=== PATIENT | female | born 1950 | race Caucasian/White ===

== ENCOUNTER 2018-10-10 15:19 | Inpatient (IN) ==
[2018-10-10] MEDS ORDERED: TYLENOL PO PRN (15:52)
[2018-10-10] MEDS ORDERED: XANAX PO PRN (15:52)
[2018-10-10] MEDS: DUONEB (A & A) INH SCH ×3 (16:08→23:54)
--- NOTE | 2018-10-10 17:25 | Diag Imaging Result Doc PS360 ---
EXAM: CHEST-2 VIEWS 10/10/2018 HISTORY: pneumonia TECHNIQUE: PA and lateral chest COMMENT: There are coarse opacities throughout both lungs. This is worsened in the right base since 09/25/2018. IMPRESSION: Worsening pneumonitis bilaterally. Electronically signed by Dale Torres 10/10/2018 5:22 PM
[2018-10-10] MEDS: SOLU-MEDROL IV SCH ×2 (18:03→23:45)
[2018-10-10] MEDS: LEVAQUIN 750 MG/D5W 750 MG/150 ML IVPB IV SCH (18:04)
[2018-10-10 19:50] LABS: BASO# 0.05 X1000 (0.0-0.2); BASO% 0.4 % (0.0-0.8); EOS# 0.68 X1000 (0.0-0.7); HEMATOCRIT 33.9 % (37.0-47.0); HEMOGLOBIN 10.8 g/dL (12.0-16.0); IMM GRAN# 0.07 X1000 (0.0-0.04); IMM GRAN% 0.5 % (0.0-0.5); LYMPH# 1.23 X1000 (1.2-3.4); MCH 26.5 PG (27-31); MCHC 31.9 g/dL (33-37); MCV 83.3 FL (81-99); MONO# 0.97 X1000 (0.11-0.59); MONO% 7.1 % (1.7-9.3); NEUT# 10.64 X1000 (1.4-6.5); PLT 441 X1000 (130-400); RBC 4.07 XMIL (4.2-5.4); RDW 14.8 % (11.5-14.5); WBC 13.64 X1000 (4.8-10.8)
[2018-10-10] MEDS: COLACE PO SCH (20:09)
[2018-10-10] MEDS: ANTIVERT PO SCH (20:10)
[2018-10-10] MEDS: TUSSIONEX LIQUID PO SCH (20:10)
[2018-10-10] MEDS: PRINIVIL PO SCH (20:10)
[2018-10-10] MEDS: FISH OIL CONCENTRATE PO SCH (20:10)
[2018-10-10] MEDS: REGLAN PO SCH (20:10)
[2018-10-10] MEDS: MUCINEX PO SCH (20:10)
[2018-10-10 20:17] LABS: ESTIMATED GFR > 60
[2018-10-10 20:20] LABS: AGAP 10; CHLORIDE 88 mmol/L (98-107); GLUCOSE 194 mg/dL (70-104); POTASSIUM 3.7 mmol/L (3.5-5.1); SODIUM 130 mmol/L (136-145); TCO2 32 mmol/L (25-35)
[2018-10-10 20:21] LABS: ALB/GLOB RATIO 1.6; ALBUMIN 3.6 g/dL (3.5-5.0); ALKALINE PHOSPHATASE 76 U/L (32-104); BUN 11 mg/dL (8-22); CALCIUM 8.7 mg/dL (8.8-10.2); COSMO 266; CREATININE 0.6 mg/dL (0.5-0.9); GOT 24 U/L (10-30); GPT 18 U/L (10-36); TOTAL BILIRUBIN 0.16 mg/dL (0.20-1.00); TOTAL PROTEIN 5.8 g/dL (6.3-8.3)
[2018-10-10] MEDS: ASMANEX 220 MICROGM INHALER INH SCH (20:46)
[2018-10-10] MEDS: METROGEL 1% TOP SCH (21:30)
[2018-10-10] MEDS: GLUCOSAMINE 500 MG/CHONDROITIN 400 MG PO SCH (21:36)
--- NOTE | 2018-10-10 23:48 | HISTORY AND PHYSICAL ---
PRIMARY CARE PHYSICIAN: Dr. Salvador Wells. CHIEF COMPLAINT: Cough, congestion, wheezing. HISTORY OF PRESENT ILLNESS: A 67-year-old white female with a very complicated past medical history presents for evaluation of above-mentioned symptoms. Current history of present illness began approximately 2 weeks ago. At that time, patient states she developed cough, congestion, and wheezing. This was above her baseline pulmonary fibrosis. The patient states over the course of the last 2 weeks, her condition has rapidly progressed. The patient currently complains of a nonproductive cough, congestion, increasing shortness of breath and intermittent wheezing. Because of her progressive symptoms, she presented to my office today. Upon arrival, patient's oxygen saturation was in the 80s with 2 L of oxygen. Because of her progressive symptoms, patient will be admitted to the hospital for full evaluation and management. Of note, patient denies fevers, chills, nausea, vomiting, chest discomfort, palpitations, dysuria, hematuria, pyuria, or change in bowel movements. She denies significant sick contacts to her knowledge. PAST MEDICAL HISTORY: 1. Allergic rhinitis. 2. Asthma. 3. History of vertigo. 4. Multiple nevi and a family history of melanoma. 5. History of left invasive mammary carcinoma of the breast diagnosed in July 2014. She is status post lumpectomy and XRT. 6. History of laparoscopic cholecystectomy in 1990. 7. Depression. 8. Metabolic syndrome. 9. Reflux disease. 10. Hypertension. 11. Hypertriglyceridemia. 12. Hyperlipidemia. 13. Impaired fasting glucose. 14. History of an intracolonic lipoma. 15. Obstructive sleep apnea. 16. Obesity. 17. Osteoarthritis. 18. Osteopenia. 19. History of GILDA/BSO. 20. Palpitations. 21. Postmenopausal state. 22. Pulmonary fibrosis. CURRENT MEDICATIONS: 1. Aloe vera 25 mg 2 tablets twice daily. 2. Asmanex 220 mcg 1 puff twice daily. 3. B-complex vitamin daily. 4. Celebrex 200 mg daily. 5. Coenzyme Q10 100 mg daily. 6. Duloxetine 60 mg daily. 7. Fish oil 1000 mg twice daily. 8. Fluticasone nasal spray 2 sprays each nostril daily as needed. 9. Hydrochlorothiazide 12.5 mg daily. 10. Letrozole 2.5 mg daily. 11. Lisinopril 5 mg at bedtime. 12. Magnesium 200 mg daily as needed. 13. Meclizine 25 mg twice daily as needed. 14. Reglan 10 mg twice daily. 15. Metrogel at bedtime. 16. Mucinex DM twice daily. 17. Nexium 40 mg daily. 18. Osteo Bi-Flex twice daily. 19. Potassium gluconate 550 mg daily. 20. Prednisone 25 mg daily. 21. ProAir HFA 1-2 puffs every 4-6 hours as needed. 22. Prolia every 6 months. 23. Singulair 10 mg daily. 24. Tussionex 5 mL at bedtime. 25. Vitamin D3 1000 units daily. 26. Xanax 0.5 mg 1 tablet at bedtime. 27. Zyrtec 10 mg daily as needed. 28. FiberCon 2 tablets daily. 29. Body/hair/skin/nails vitamin 3 capsules daily. 30. Colace 100 mg 3 tablets at bedtime. ALLERGIES: Patient states she is allergic to Arnuity Ellipta which causes headache and shortness of breath and Wellbutrin which caused headaches. SOCIAL HISTORY: Patient previously smoked 1 pack per day for 18 years. She stopped in 1986. She drinks approximately 1 to 6 alcoholic drinks per week. She denies illicit drug use. She is retired. She enjoys reading, sweepstakes and bird watching. She does not exercise routinely. FAMILY HISTORY: Patient's father passed at age 65 secondary to complications of melanoma. Patient's mother is living at age 91 with a history of hyperlipidemia, pulmonary fibrosis, COPD, pacemaker implantation, and mitral valve prolapse. REVIEW OF SYSTEMS: A 12 point review of systems was performed. Pertinent positives and negatives noted history present illness. PHYSICAL EXAMINATION: VITAL SIGNS: Temperature 98.4 degrees, heart rate 81, respirations 18, blood pressure is 131/65. GENERAL: Chronically ill appearing, no acute distress. HEENT: Normocephalic, atraumatic. Pupils equal, round, reactive to light. Extraocular muscles intact. Sclerae anicteric. [place]row conjunctivae. Oral and nasopharynx clear without exudate. NECK: Supple. No lymphadenopathy. No thyromegaly. No bruits auscultated. CARDIOVASCULAR: Regular rate and rhythm. No significant murmurs, rubs, or gallops. PULMONARY: Crackles at bilateral bases. Decreased breath sounds. ABDOMEN: Soft, nontender, nondistended. Positive bowel sounds. EXTREMITIES: Moves all extremities well. No significant clubbing, cyanosis, 1+ lower extremity edema bilaterally. NEUROLOGIC: Cranial nerves 2-12 grossly intact. Motor and sensory grossly intact. PSYCHOLOGIC: Appropriate. LABORATORY DATA: White blood cell count 13.64, hemoglobin 10.8, hematocrit 33.9, platelet count 441,000. Sodium 130, potassium 3.7, chloride 88, bicarb 32, BUN 11, creatinine 0.6, glucose 194, calcium 8.7, total bilirubin 0.16, total protein 5.8, albumin 3.6, alkaline phosphatase 76, AST 24, ALT 18. Chest x-ray revealed worsening pneumonitis bilaterally. ASSESSMENT AND PLAN: A 67-year-old white female with a complicated past medical history presents with progressive shortness of breath, cough and congestion. Patient does have progressive pulmonary fibrosis. Chest x-ray, however, has shown significant progression since September 25. This would suggest an underlying infectious process. Patient be admitted the hospital for full evaluation and management of presumed pneumonia. 1. Admit to General Medicine. 2. Community acquired pneumonia-we will check blood cultures and sputum cultures. We will place patient empirically on levofloxacin therapy. We will increase steroids as described above and start routine bronchodilators. Will encourage incentive spirometry and aspiration precautions. 3. Pulmonary fibrosis-unfortunately, patient has progressive disease. The patient is being treated with prednisone 25 mg daily. In the setting of progressive illness, we will increase steroids to Solu-Medrol 40 mg q.8 hours. We will treat patient's underlying pneumonia as described above. 4. Hypoxia-patient's oxygen requirements have increased. We will place patient on oxygen per protocol. We will aggressively manage pneumonia as noted. 5. Vertigo-we will continue patient on meclizine therapy. 6. Depression-we will continue patient on Cymbalta therapy. 7. Reflux disease-we will place patient on aspiration precautions. We will continue Reglan and Nexium therapy. 8. Hypertension-we will continue patient on her home regimen. 9. Impaired fasting glucose-in the setting of increasing steroids we will start patient on sliding scale insulin. 10. Fluid, electrolytes, nutrition. We will monitor electrolytes, saline lock IV, cardiac prudent diet. 11. Prophylaxis. Patient will be placed on subcu Lovenox. cc: Salvador Wells MD [facility]Mary
[2018-10-11] MEDS: DUONEB (A & A) INH SCH ×5 (03:26→19:34)
[2018-10-11] MEDS: NEXIUM PO SCH (06:34)
[2018-10-11] MEDS: HUMALOG SUBQ SCH ×4 (06:35→20:17)
[2018-10-11 07:04] LABS: BASO# 0.01 X1000 (0.0-0.2); BASO% 0.1 % (0.0-0.8); HEMATOCRIT 36.9 % (37.0-47.0); HEMOGLOBIN 11.7 g/dL (12.0-16.0); IMM GRAN# 0.05 X1000 (0.0-0.04); IMM GRAN% 0.4 % (0.0-0.5); LYMPH# 0.58 X1000 (1.2-3.4); MCH 26.5 PG (27-31); MCHC 31.7 g/dL (33-37); MCV 83.5 FL (81-99); MONO% 2.6 % (1.7-9.3); MPV 9.1 FL (7.4-10.4); NEUT# 10.63 X1000 (1.4-6.5); NEUT% 91.9 % (42.2-75.2); PLT 443 X1000 (130-400); RBC 4.42 XMIL (4.2-5.4); RDW 14.9 % (11.5-14.5); WBC 11.57 X1000 (4.8-10.8)
[2018-10-11 07:09] LABS: ESTIMATED GFR > 60
[2018-10-11 07:16] LABS: AGAP 13; ALB/GLOB RATIO 1.5; ALBUMIN 3.9 g/dL (3.5-5.0); ALKALINE PHOSPHATASE 80 U/L (32-104); BUN 7 mg/dL (8-22); CALCIUM 9.1 mg/dL (8.8-10.2); CHLORIDE 87 mmol/L (98-107); COSMO 269; CREATININE 0.5 mg/dL (0.5-0.9); GLUCOSE 256 mg/dL (70-104); GOT 28 U/L (10-30); GPT 22 U/L (10-36); POTASSIUM 4.2 mmol/L (3.5-5.1); SODIUM 131 mmol/L (136-145); TCO2 31 mmol/L (25-35); TOTAL BILIRUBIN 0.21 mg/dL (0.20-1.00); TOTAL PROTEIN 6.5 g/dL (6.3-8.3)
[2018-10-11] MEDS: ASMANEX 220 MICROGM INHALER INH SCH ×2 (07:39→19:34)
[2018-10-11 08:16] LABS: BANDS 4 % (0-1); HYPOCHROM 1+; LARGE PLATELETS 1+; LYMPHS 6 % (21-51); SEGS 90 % (42-75)
[2018-10-11] MEDS: SOLU-MEDROL IV SCH ×3 (08:43→23:31)
[2018-10-11] MEDS: FISH OIL CONCENTRATE PO SCH ×2 (08:45→20:16)
[2018-10-11] MEDS: BENEFIBER PACKET PO SCH (08:45)
[2018-10-11] MEDS: COENZYME Q10 PO SCH (08:46)
[2018-10-11] MEDS: MAG-OX PO SCH (08:47)
[2018-10-11] MEDS: VICON-C PO SCH (08:47)
[2018-10-11] MEDS: VITAMIN D PO SCH (08:47)
[2018-10-11] MEDS: REGLAN PO SCH ×2 (08:47→20:16)
[2018-10-11] MEDS: CYMBALTA PO SCH (08:47)
[2018-10-11] MEDS: CELEBREX PO SCH (08:47)
[2018-10-11] MEDS: ANTIVERT PO SCH ×2 (08:48→20:15)
[2018-10-11] MEDS: MUCINEX PO SCH ×2 (08:49→20:16)
[2018-10-11] MEDS: FEMARA PO SCH (08:49)
[2018-10-11] MEDS: GLUCOSAMINE 500 MG/CHONDROITIN 400 MG PO SCH ×2 (08:49→22:15)
[2018-10-11] MEDS: SINGULAIR PO SCH (08:49)
[2018-10-11] MEDS: LOVENOX SUBQ SCH (08:52)
[2018-10-11] MEDS ORDERED: ATARAX PO SCH (09:00)
[2018-10-11] MEDS: FLONASE NAS SCH (11:20)
[2018-10-11] MEDS: LEVAQUIN 750 MG/D5W 750 MG/150 ML IVPB IV SCH (15:24)
--- NOTE | 2018-10-11 15:55 | PROGRESS NOTE ---
DATE: 10/11/2018 SUBJECTIVE: The patient was admitted yesterday with profound shortness of breath and hypoxia. Chest x-ray was consistent with increasing pneumonitis versus pneumonia. Patient was started on levofloxacin therapy, scheduled bronchodilators, and Solu-Medrol therapy. Overnight, patient states she did not sleep well, but overall, her breathing has improved considerably. She currently denies fevers, chills, nausea, vomiting, or chest discomfort. Shortness of shortness and wheezing have decreased considerably. OBJECTIVE: Vital Signs: T-max 99.6 degrees, heart rate 81 to 99, respirations 18, blood pressure 131 to 146 over 51 to 65. General: Chronically ill appearing, no acute distress. Cardiovascular: Regular rate and rhythm. No significant murmurs, rubs, or gallops. Pulmonary: Improved air movement. Minimal crackles at bases. Abdomen: Soft nontender, nondistended. Positive bowel sounds. Extremities: Moves all extremities well. No significant clubbing or cyanosis; 1+ lower extremity edema bilaterally. Dermatologic: Evaluation reveals no evidence of rash. LABORATORY DATA: White blood cell count 11.57, hemoglobin 11.1, hematocrit 36.9, platelet count is 443,000. Sodium 131, potassium 4.2, chloride 87, bicarbonate 31. BUN 7, creatinine 0.5, glucose 256, calcium 9.1, total bilirubin 0.21, total protein 6.5, albumin 3.9, alkaline phosphatase 80, AST 28, ALT 22. ASSESSMENT AND PLAN: 1. Community acquired pneumonia--blood cultures and sputum cultures have been pursued. For now, we will continue aggressive management with levofloxacin, bronchodilators and IV steroid intervention. We will continue incentive spirometry and aspiration precautions. 2. Pulmonary fibrosis--question is raised whether this is a progression of chronic disease or if this has a more acute component with an underlying infection. With the acuity of symptoms, I suspect infectious etiology is most likely. We will, however, continue increased steroids with Solu-Medrol 40 mg every 8 hours. We will treat potential acute pneumonia as described above. 3. Hypoxia--we will continue patient on oxygen per protocol. Oxygen requirements have decreased slightly overnight. 4. Vertigo--we will continue patient on meclizine therapy. 5. Depression--we will continue patient on Cymbalta therapy. 6. Reflux disease--patient denies significant symptoms currently. We will continue Reglan and Nexium therapy. 7. Hypertension--patient's blood pressure is reasonably controlled on her home regimen. We will continue to follow this. 8. Impaired fasting glucose--patient's blood sugars have increased considerably with the addition of steroids. We will continue sliding scale insulin. 9. Disposition--at this point, patient continues to require snf care in a hospital setting. We will plan discharge home once appropriate. cc: Salvador Wells MD
[2018-10-11] MEDS: COLACE PO SCH (20:15)
[2018-10-11] MEDS ORDERED: NS NEB INH SCH (20:15)
[2018-10-11] MEDS: PRINIVIL PO SCH (20:16)
[2018-10-11] MEDS: TUSSIONEX LIQUID PO SCH (20:16)
[2018-10-11] MEDS: METROGEL 1% TOP SCH (22:16)
[2018-10-11] MEDS: XOPENEX NEB INH SCH (23:22)
[2018-10-11] MEDS: ATROVENT NEB INH SCH (23:22)
[2018-10-12] MEDS: ATROVENT NEB INH SCH ×5 (03:42→20:03)
[2018-10-12] MEDS: XOPENEX NEB INH SCH ×5 (03:42→20:03)
[2018-10-12] MEDS: NEXIUM PO SCH (06:08)
[2018-10-12] MEDS: HUMALOG SUBQ SCH ×4 (06:09→21:48)
[2018-10-12] MEDS: ASMANEX 220 MICROGM INHALER INH SCH ×2 (07:31→20:02)
[2018-10-12] MEDS ORDERED: NS NEB INH SCH (08:15)
[2018-10-12] MEDS: BENEFIBER PACKET PO SCH (08:18)
[2018-10-12] MEDS: MUCINEX PO SCH (08:20)
[2018-10-12] MEDS: SINGULAIR PO SCH (08:20)
[2018-10-12] MEDS: COENZYME Q10 PO SCH (08:20)
[2018-10-12] MEDS: VITAMIN D PO SCH (08:20)
[2018-10-12] MEDS: FISH OIL CONCENTRATE PO SCH ×2 (08:20→21:45)
[2018-10-12] MEDS: CYMBALTA PO SCH (08:21)
[2018-10-12] MEDS: MAG-OX PO SCH (08:21)
[2018-10-12] MEDS: CELEBREX PO SCH (08:21)
[2018-10-12] MEDS: REGLAN PO SCH ×2 (08:21→21:44)
[2018-10-12] MEDS: GLUCOSAMINE 500 MG/CHONDROITIN 400 MG PO SCH ×2 (08:22→22:02)
[2018-10-12] MEDS: ANTIVERT PO SCH ×2 (08:22→21:44)
[2018-10-12] MEDS: FEMARA PO SCH (08:22)
[2018-10-12] MEDS: VICON-C PO SCH (08:22)
[2018-10-12] MEDS: LOVENOX SUBQ SCH (08:28)
[2018-10-12] MEDS: FLONASE NAS SCH (08:28)
[2018-10-12] MEDS: SOLU-MEDROL IV SCH ×2 (08:30→21:44)
[2018-10-12] MEDS: PATIENT'S OWN MED PO SCH (11:25)
[2018-10-12] MEDS: HYDROCHLOROTHIAZIDE PO SCH (11:27)
[2018-10-12] MEDS: LEVAQUIN 750 MG/D5W 750 MG/150 ML IVPB IV SCH (16:28)
[2018-10-12] MEDS ORDERED: MUCINEX D PO SCH (21:00)
--- NOTE | 2018-10-12 21:34 | PROGRESS NOTE ---
DATE: 10/12/2018 SUBJECTIVE: Overall, the patient's condition continues to improve. This morning, upon my arrival, patient states she slept well. Throughout the day today, patient increase her activity. Her shortness of breath has returned approaching baseline. This evening, patient complains of cough. Patient has had 1 episode of productivity. She denies fevers, chills, nausea, vomiting, or chest discomfort. OBJECTIVE: Vital Signs: T-max 98.7, heart rate 77 to 97, respirations 17 to 18, blood pressure 119 to 158 over 50 to 84. General: Chronically ill appearing, no acute distress. Cardiovascular: Regular rate and rhythm. No significant murmurs, rubs, or gallops. Pulmonary: Distant breath sounds. Minimal crackles at the bases. Adequate air movement. Abdomen: Soft, nontender, nondistended. Positive bowel sounds. Extremities: Moves all extremities well. No significant clubbing, cyanosis, or edema. Dermatologic: Evaluation reveals no evidence of rash. LABORATORY DATA: None. ASSESSMENT AND PLAN: 1. Community acquired pneumonia. Blood cultures and sputum cultures have been ordered. Blood cultures thus far are negative. Sputum culture has not been collected secondary to lack of productivity. For now, we will continue levofloxacin, bronchodilators, and intravenous steroids. We will encourage incentive spirometry and aspiration precautions. 2. Pulmonary fibrosis. Unfortunately, patient has advanced disease. Over the course of the last 2 weeks, however, her condition has deteriorated significantly suggesting underlying acute infectious etiology. We will treat as described above. We will continue supportive care for her underlying pulmonary fibrosis. 3. Hypoxia. The patient's oxygenation has improved while hospitalized. We will continue oxygen per sliding scale. 4. Vertigo. We will continue patient on meclizine therapy. 5. Depression. We will continue patient on Cymbalta therapy. Symptoms are controlled. 6. Reflux disease. Certainly this, as well as aspiration, may be playing a role in her decompensation. We will continue Reglan and Nexium therapy. We will encourage aspiration precautions. 7. Hypertension. The patient's blood pressure is reasonably controlled on her current regimen. 8. Impaired fasting glucose. With the addition of steroids, blood sugars have increased considerably. We will continue sliding scale insulin for now. 9. Disposition. At this point, the patient continues to require snf care in a hospital setting. We will plan discharge home once appropriate. cc: Salvador Wells MD
[2018-10-12] MEDS: COLACE PO SCH (21:43)
[2018-10-12] MEDS: TUSSIONEX LIQUID PO SCH (21:43)
[2018-10-12] MEDS: PRINIVIL PO SCH (21:45)
[2018-10-12] MEDS: METROGEL 1% TOP SCH (21:47)
--- NOTE | 2018-10-12 23:44 | PULMONOLOGY CONSULTATION ---
DATE: 10/12/2018 REQUESTING PHYSICIAN: Dr. Salvador Wells. REASON FOR CONSULTATION: Patient known to me with respiratory failure. HISTORY OF PRESENT ILLNESS: Ms. Mathews is a complicated 67-year-old white female who has been followed in my clinic. The patient was last seen on 06/19/2018 and missed several followups. The patient has a history of lumpectomy with prior radiation for breast cancer in 2014, and has developed asymmetric pulmonary infiltrates in the left base and right apical region. She has also developed a severe steroid-responsive cough. The patient's x-ray pattern is most consistent with nonspecific interstitial pneumonitis. She was placed on steroids, with significant improvement in cough but she developed significant weight gain. The patient was initiated on CellCept as a steroid-sparing agent, but the patient was noncompliant with this medication because it made her feel poorly. The patient was last seen on 06/19/2018 as outlined above and was on prednisone 25 mg a day. She has been relatively stable on her weight since that time. The patient reports she has felt significantly worse over the last 2 weeks with increased cough, increased congestion, increased wheezing with increasing oxygen requirements. The patient denies significant fevers or chills. She was evaluated by Dr. Wells and chest x-ray revealed worsening infiltrates in a more acute fashion. The patient's steroids have been increased and she is being treated for a community- acquired pneumonia. Clinically she reports she feels better and hopes to go home soon. PAST MEDICAL HISTORY: Problem list: 1. Morbid obesity with a BMI approaching 50. 2. Asthma. 3. Nonspecific interstitial pneumonitis, with significant cough as per above. 4. History of breast cancer with radiation therapy. 5. Depression. 6. Dyslipidemia. 7. Status post cholecystectomy. 8. Steroid-induced diabetes mellitus. 9. Obstructive sleep apnea, on CPAP device. 10. Osteoarthritis. 11. Status post hysterectomy and oophorectomy. SOCIAL HISTORY: The patient has a [id number]-year history for tobacco. Occasional alcohol use. FAMILY HISTORY: Positive for melanoma, pulmonary fibrosis, COPD, dyslipidemia. REVIEW OF SYSTEMS: As noted in the HPI, but is otherwise negative. PHYSICAL EXAMINATION: A morbidly obese white female, resting comfortably and in no distress. BP 147/61, heart rate 82, respiratory rate 16, oxygen saturation 96% on 2 L per nasal cannula.HEENT: Pupils are equal and reactive. Oropharynx is clear. Neck is supple. Chest reveals good air entry bilaterally with diffuse crackles, most prominent in the left base and right anterior upper lung lewis. Cardiac exam: Distant heart sounds. Normal S1, normal S2. Abdomen is obese and soft. Extremities reveal edema, right greater than left lower extremities. LABORATORY DATA: Sodium 131, potassium 4.2, chloride 87, BUN 7, creatinine 0.5, glucose 221. White blood count 11.57, hemoglobin 11.7, platelet count 443,000. DIAGNOSTIC DATA: Chest x-ray on 10/10/2018 revealed increasing infiltrates compared to 09/25/2018. IMPRESSION: Complicated 67-year-old white female with prior treatment for breast cancer with bilateral infiltrates. The patient did have a PET scan with some activities in these infiltrates, but when a biopsy was to be performed the radiologist felt that it was not an area that could be biopsied. The patient's treatment has been complicated by weight gain while on steroids, although her weight has remained relatively stable on prednisone 25 mg per day. The patient's chest x-ray has had a significant worsening over the last 2 weeks, suggesting an acute component is present. I agree with treating her for community-acquired pneumonia; however, with her obesity there may be a component of heart failure present. RECOMMENDATIONS: 1. Agree with steroids and transitioning back to oral steroids as you have planned. 2. Agree with treating patient for community-acquired pneumonia. 3. Continue oxygen for hypoxemic respiratory failure. 4. Continue sugars as you are doing. 5. We will initiate dose of Lasix early in the morning, and would recommend a trial of Lasix 40 mg a day at the time of discharge. 6. The patient is scheduled to see me next week. cc: MD Salvador Mcintyre MD
[2018-10-13] MEDS ORDERED: LASIX IV ONE (05:45)
[2018-10-13] MEDS: HUMALOG SUBQ SCH ×3 (06:12→17:33)
[2018-10-13] MEDS: NEXIUM PO SCH (06:12)
[2018-10-13] MEDS: ASMANEX 220 MICROGM INHALER INH SCH (07:58)
[2018-10-13] MEDS: XOPENEX NEB INH SCH ×2 (07:58→15:27)
[2018-10-13] MEDS: ATROVENT NEB INH SCH ×2 (07:58→15:27)
[2018-10-13] MEDS ORDERED: PREDNISONE PO ONE (08:06)
[2018-10-13] MEDS: FLONASE NAS SCH (08:50)
[2018-10-13] MEDS: CELEBREX PO SCH (08:50)
[2018-10-13] MEDS: FEMARA PO SCH (08:51)
[2018-10-13] MEDS: COENZYME Q10 PO SCH (08:51)
[2018-10-13] MEDS: REGLAN PO SCH (08:51)
[2018-10-13] MEDS: BENEFIBER PACKET PO SCH (08:51)
[2018-10-13] MEDS: ANTIVERT PO SCH (08:51)
[2018-10-13] MEDS: SINGULAIR PO SCH (08:51)
[2018-10-13] MEDS: FISH OIL CONCENTRATE PO SCH (08:51)
[2018-10-13] MEDS: CYMBALTA PO SCH (08:52)
[2018-10-13] MEDS: HYDROCHLOROTHIAZIDE PO SCH (08:52)
[2018-10-13] MEDS: VICON-C PO SCH (08:52)
[2018-10-13] MEDS: MAG-OX PO SCH (08:52)
[2018-10-13] MEDS: GLUCOSAMINE 500 MG/CHONDROITIN 400 MG PO SCH (08:52)
[2018-10-13] MEDS: LOVENOX SUBQ SCH (08:52)
[2018-10-13] MEDS: PATIENT'S OWN MED PO SCH (08:52)
[2018-10-13] MEDS: VITAMIN D PO SCH (08:52)
[2018-10-13] MEDS ORDERED: MUCINEX DM PO SCH (09:00)
[2018-10-13] MEDS: LEVAQUIN 750 MG/D5W 750 MG/150 ML IVPB IV SCH (17:33)
[2018-10-13 19:46] VITALS: BP 152/68
--- NOTE | 2018-10-13 19:53 | DISCHARGE SUMMARY ---
ADMISSION DATE: 10/10/2018 DISCHARGE DATE: 10/13/2018 ADMISSION DIAGNOSES: 1. Cough. 2. Congestion. 3. Wheezing. DISCHARGE DIAGNOSES: 1. Community-acquired pneumonia, improving. 2. Pulmonary fibrosis, present on arrival. 3. Hypoxia, present on arrival. 4. Vertigo, present on arrival. 5. Depression, present on arrival. 6. Reflux disease, present on arrival. 7. Hypertension, present on arrival. 8. Impaired fasting glucose, present on arrival. CONSULTATIONS: Dr. Singh with Pulmonary Medicine was consulted for further evaluation and management of community-acquired pneumonia in a patient with advancing pulmonary fibrosis procedures. Chest x-ray was performed on 10/10/2018 which revealed worsening pneumonitis bilaterally. HISTORY AND PHYSICAL EXAMINATION: See admit note. PHYSICAL EXAMINATION PRIOR TO DISCHARGE: Vital Signs: Temperature 99.1 degrees, heart rate 90, respirations 15, blood pressure is 128/53, O2 saturation 97% on 2 L. General: Well developed, chronically ill-appearing, no acute distress. Cardiovascular: Regular rate and rhythm. No significant murmurs, rubs, or gallops. Pulmonary: Crackles at bilateral bases. Abdomen: Soft, nontender, nondistended. Positive bowel sounds. Extremities: Moves all extremities well. No significant clubbing, cyanosis, or edema. Dermatologic: Evaluation reveals no evidence of rash. LABORATORY DATA: Prior to discharge: None. HOSPITAL COURSE: The patient was admitted as per history and physical examination. Hospital course per condition is as follows: 1. Community-acquired pneumonia-upon admission, patient was noted to have significant cough, congestion, and hypoxia. The patient was placed as an inpatient. Levofloxacin therapy, bronchodilators, and an increase in IV steroids were initiated. Blood cultures have returned negative. Sputum culture is pending. With treatment, as described above, patient has achieved significant improvement, approaching her baseline. As she is approaching baseline, I do feel it is appropriate to discharge patient home. We will continue patient for an additional 7 days of levofloxacin therapy. We will provide a prescription for levalbuterol and Atrovent to be used 3 times daily. We will initiate a steroid taper with the patient taking 35 mg tomorrow, 30 mg on Tuesday, and 25 mg daily thereafter. Close followup will be arranged with Dr. Singh. We will continue to encourage incentive spirometry and aspiration precautions as an outpatient. 2. Pulmonary fibrosis-patient has advancing disease. She does appear to have mild volume overload at the present time. Patient will be discharged home with a steroid taper ending with 25 mg daily. We will continue oxygen per protocol. We will add Lasix therapy on a daily basis. We will need to follow up with renal function and potassium in the near future. 3. Hypoxia-the patient has longstanding disease associated with her pulmonary fibrosis. Initially, patient had increased oxygen requirements. At time of discharge, patient had resumed 2 L, the equivalent of what she was requiring home. We will continue oxygen per protocol. We will treat community-acquired pneumonia as above. 4. Vertigo-patient was continued on meclizine while hospitalized. Symptoms remain controlled. 5. Depression-patient was continued on Cymbalta therapy with adequate response. 6. Reflux disease-patient was continued on Reglan and Nexium therapy. Aspiration precautions were initiated. The patient understands the importance of aspiration precautions as an outpatient. 7. Hypertension-patient's blood pressure remained reasonably controlled while hospitalized. 8. Impaired fasting glucose-with steroids, blood sugars increased. We will continue the steroid taper. At this point, no further intervention will be warranted. While hospitalized, she was treated with sliding scale insulin. DISCHARGE CONDITION: Stable. DISPOSITION: Discharge to home. MEDICATIONS: 1. Acetaminophen 650 mg every 4 hours as needed. 2. Xanax 0.5 mg at bedtime. 3. Celebrex 200 mg 4 times weekly. 4. Vitamin D3 1000 mg daily. 5. Colace 300 mg at bedtime. 6. Duloxetine 60 mg daily. 7. Nexium 40 mg daily. 8. Flonase 2 sprays each nostril daily. 9. Mucinex DM 1 tablet every morning. 10. Mucinex D 1 tablet at bedtime. 11. Fiber tablets daily. 12. Tussionex 5 mL at bedtime. 13. Atrovent nebulized 3 times daily. 14. Femara 2.5 mg daily. 15. Levalbuterol 0.63 mg nebulizer 3 times daily. 16. Lisinopril 5 mg at bedtime. 17. Magnesium 250 mg daily. 18. Meclizine 25 mg twice daily. 19. Reglan 10 mg twice daily. 20. Asmanex 1 puff twice daily. 21. Singulair 10 mg daily. 22. Potassium gluconate daily 595 mg daily. 23. Co Q10 100 mg daily. 24. Vitamin B complex daily. 25. ProAir HFA 2 puffs 4 times daily. 26. Aloe Vera 5000 mg daily. 27. Vitamin C 1000 mg daily. 28. Aspirin 81 mg daily. 29. Lasix 40 mg daily. 30. Osteo Bi-Flex twice daily. 31. Levaquin 500 mg daily for 7 days. 32. Metrogel applied at bedtime. 33. Fish oil 1000 mg twice daily. 34. Prednisone 35 mg on Tuesday, 30 mg on Tuesday, and 25 mg daily thereafter. 35. Vitamin E 400 units daily. FOLLOWUP: The patient is to follow with me in approximately 1 to 2 weeks. At that time, we will check a CMP. The patient is follow up with Dr. Singh as scheduled. cc: Salvador Wells MD
== END 2018-10-13 20:32 | disposition home or self-care (01) | DRG 194 ==
LOC: DIRADM 15:19 → 3N 15:35
PROVIDERS: ADMIT Internal Medicine; ATTEND Internal Medicine